=== PATIENT | male | born 1960 | race Hispanic/Latino ===

== ENCOUNTER 2025-08-04 11:32 | Emergency (ER) | payer MEDICARE ==
[~2025-08-04] VITALS: Ht 190.5 cm; Wt 91.6 kg
[2025-08-04] MEDS ORDERED: IOPAMIDOL 370 MG/ML 100 ML INFUS..BTL INJ ONE (13:41)
[2025-08-04] MEDS ORDERED: NAPROSYN500 MG PO (15:08)
[2025-08-04 15:10] VITALS: PULSE 51; RESP 18; TEMP 98.2; O2SAT 98
== END 2025-08-04 15:15 | disposition home or self-care (01) ==
LOC: FSED 11:41
DX: R10.12 Left upper quadrant pain (principal); S22.31XA Fracture of one rib, right side, initial encounter for closed fracture; M54.2 Cervicalgia; K57.90 Diverticulosis of intestine, part unspecified, without perforation or abscess without bleeding; K40.90 Unilateral inguinal hernia, without obstruction or gangrene, not specified as recurrent
CPT/HCPCS: 70450; 71046; 72125; 74177; 80053; 80076; 84484; 85025; 85379; 93005; 99284; Q9967